=== PATIENT | female | born 1980 | race Caucasian/White ===

== ENCOUNTER 2023-01-10 08:38 | Day surgery (SDC) | payer BC ==
[2023-01-10] MEDS ORDERED: Ringers Lactate 1,000 ML IV ONE (09:02)
[2023-01-10] MEDS: OXYMETAZOLINE HCL 0.05% 15ML NAS ONE ×2 (09:45→11:14)
[2023-01-10] MEDS ORDERED: OFLOXACIN OPH 0.3%-5 ML BTL ONE (10:43)
[2023-01-10] MEDS ORDERED: OXYMETAZOLINE HCL 0.05% 15ML NAS ONE (10:43)
[2023-01-10] MEDS ORDERED: LIDOCAINE HCL/EPINEPHRINE 20 ML MDV ONE (10:44)
[2023-01-10] MEDS ORDERED: MIDAZOLAM HCL 2 MG/2 ML INJ ONE (10:55)
[2023-01-10] MEDS ORDERED: FENTANYL CITR 100 MCG/2 ML ONE (10:55)
[2023-01-10] MEDS ORDERED: propofoL 200 MG/20 ML VIAL IV ONE (10:55)
[2023-01-10] MEDS ORDERED: LIDOCAINE 2% MPF 5 ML VIAL ONE (10:55)
[2023-01-10] MEDS ORDERED: KETAMINE HCL IN 0.9 % NACL 50 MG/5 ML SYRINGE IV ONE (11:17)
[2023-01-10] MEDS ORDERED: ONDANSETRON 4 MG/2 ML VIAL ONE (11:45)
[2023-01-10] MEDS ORDERED: GLYCOPYRROLATE 0.2 MG/ML SYR ONE (11:45)
[2023-01-10 11:53] VITALS: O2SAT 100
[2023-01-10 13:27] VITALS: BP 120/70; TEMP 98
--- NOTE | 2023-01-11 11:15 | P.OP ---
Woodworking Bench Carpenter: NONE,NONE Preoperative diagnosis: Other diseases of the pharynx, chronic eustachian tube dysfunction Postoperative diagnosis: Same Primary procedure: Nasal endoscopy with bilateral dilation of the eustachian tube Secondary procedure: Tympanostomy tube placement Anesthesia: General Estimated blood loss: None Specimen: None Findings: Severe edema of the eustachian tube Operative Technique: The patient was brought to the operating room and placed under general anesthesia. The left ear was examined under the operating microscope. The eardrum appeared significantly retracted with a area of monomer from previous tympanostomy tube placement. There is no evidence of active infection or fluid within the middle ear. After removal of a small amount of cerumen using a wire loop, a myringotomy knife was used to make an incision in the anterior-inferior quadrant of the eardrum. A Paparella type I tympanostomy tube was positioned across the myringotomy using an alligator forcep and pick. Attention was then turned to the right ear where a similar procedure was performed. The right eardrum was examined under an operating microscope with the aid of an ear speculum. A small amount of cerumen was removed with a wire loop. The eardrum was noted to be retracted with a monomeric area approximately 25% of the eardrum. A radial incision was made in the anterior-inferior quadrant of the tympanic membrane and a Paparella type I tympanostomy tube was positioned across the incision using alligator forcep and pick. There was no active middle ear infection, inflammation, polyp or fluid noted within the ears at the time of the procedure The head of bed was turned 90 degrees. A 0 degree endoscope was used to perform a nasal endoscopy. The nasal mucosa was significantly edematous with a moderate left septal spur/narrowing of the nasal cavity. There was no evidence of nasal polyps noted during the nasal endoscopy. The inferior turbinate appeared swollen and enlarged. The middle meatus on the right side appeared clear with no obvious pus but a moderate amount of clear mucus was noted throughout the nasal cavity. On the left middle meatus posteriorly, there was a small amount of purulent appearing material. A mucus trap and Nguyen suction were used to collect this purulence which was then sent to the microbiology lab for culture and sensitivity. The patient's nose was packed with Afrin-soaked pledgets for decongestion of the mucosa. After several minutes, the pledgets were removed and the nasal cavity mucosa was improved with moderate decongestion. A 30 degree rigid endoscope was then used to visualize the nasopharynx and the right eustachian tube opening and torus tubarius. The mucosa within the opening of the eustachian tube was moderately to severely edematous. The Acclarent Aera device was prepared according to sewage plant attendant's instructions. Under direct endoscopic visualization, the device was passed through the nasal cavity and into the nasopharynx. The tip was placed at the opening of the eustachian tube and the balloon advanced into the eustachian tube gently with no restriction or resistance noted. The balloon was slowly inflated up to 2 mario alberto of pressure with no abnormal findings noted. The balloon was then inflated up to 10 mario alberto of pressure and held for 2 minutes. The balloon was then deflated and the device slowly and carefully withdrawn. There was no significant bleeding or other evidence of immediate complication. A similar procedure was performed on the left side. A 30 degree rigid endoscope was used to visualize the nasopharynx and left eustachian tube opening and torus tubarius. The mucosa was noted to be below the with severe edema. The balloon was advanced into the eustachian tube with a small amount of resistance. With repositioning the tube was advanced and slowly inflated up to 2 mario alberto. On inspection, I was concerned about kinking of the tube and the balloon was deflated and removed. On inspection there was a small amount of kinking. The balloon was retracted back into the positioning device. The device was then reinserted through the nasal cavity and into the nasopharynx under direct endoscopic guidance. The tip of the device was repositioned slightly more anteriorly and angled more superiorly followed by gentle advancement of the balloon which was without any significant resistance. The balloon was again inflated to 2 mario alberto of pressure. At this stage there was no abnormal appearance or evidence of tube displacement or bleeding. The balloon was then inflated to a full 10 mario alberto and held in place for 2 minutes. The balloon was then deflated and slowly withdrawn. There was no evidence of significant bleeding or other immediate complication. The procedure was then concluded and the patient was returned to care of anesthesia for awakening extubation in the operating room which proceeded without difficulty. Complications: none Disposition: Patient will be discharged home later today in the care of her family and follow-up with Dr. Giraldo as previously scheduled Complications: None Implants: Paparella type I tubes Fluids & blood products: See anesthesia record Transferred to: Recovery Room Condition: Good
== END 2023-01-10 13:00 | disposition home or self-care (01) ==
LOC: OR 08:38
PROVIDERS: ATTEND Otolaryngology
PROC: 099670Z Drainage of Left Middle Ear with Drainage Device, Via Natural or Artificial Opening (ICD-10-PCS; 2023-01-10)
PROC: 099570Z Drainage of Right Middle Ear with Drainage Device, Via Natural or Artificial Opening (ICD-10-PCS; 2023-01-10)
PROC: 097G8ZZ Dilation of Left Eustachian Tube, Via Natural or Artificial Opening Endoscopic (ICD-10-PCS; principal; 2023-01-10 10:30)
PROC: 097F8ZZ Dilation of Right Eustachian Tube, Via Natural or Artificial Opening Endoscopic (ICD-10-PCS; 2023-01-10 10:30)
DX: H69.93 Unspecified Eustachian tube disorder, bilateral (principal); J39.2 Other diseases of pharynx
CPT/HCPCS: 87070; 36415; 87205; 84703; 69706 ×2; 69436; J2704; J2001; J2250; J3010; J2405; J7120